=== PATIENT | female | born 1980 | race Caucasian/White ===

== ENCOUNTER 2018-08-19 16:45 | Outpatient (CLI) | payer BC ==
[~2018-08-19] VITALS: Ht 144.8 cm; Wt 96.3 kg
[2018-08-19 16:54] VITALS: Ht 144.8 cm; Wt 96.3 kg
[2018-08-19] MEDS ORDERED: PNV11TAB PO (16:54)
[2018-08-19 16:55] VITALS: BP 111/58; PULSE 77; RESP 18
--- NOTE | 2018-08-19 18:58 | TRIAGE ---
OB Triage Datetime Report Generated by CPN: 08/19/2018 18:57 Datetime: 08/19/2018 18:15 Labor Evaluation Frequency: occas Monitor Mode: External Duration (sec)2399: 60-100 Quality: Mild Pattern: Normal: <= 5 Contractions in 10 Minutes Resting Tone [place]: Relaxed Heart Rate FHR Baseline Rate: 140 Monitor Mode: External US FHR Baseline Changes: No Baseline Change Variability: Moderate 6-25 bpm Accelerations: 15X15 Decelerations: None Category: Category I Datetime: 08/19/2018 17:00 Assessment Type: Triage Maternal Assessment Level of Consciousness: Fully Conscious DTR's/Clonus: DTRs 2+; No Clonus Headache: Denies Blurred Vision: No Respiratory Effort: Unlabored; Regular Rhythm; Equal Expansion Breath Sounds, Left: Clear and Equal Breath Sounds, Right: Clear and Equal Nausea/Vomiting: Denies RUQ Epigastric Pain: Denies Lower Extremities Edema: None Degree: None Upper Extremities Edema: None Degree: None Facial Edema: None Fall Risk Assessment History of Falling: (0) No Secondary Diagnosis: (0) No Ambulatory Aid: (0) Bedrest/Nurse Assist IV Therapy: (0) No Gait: (0) Normal/Bedrest/Immobile Mental Status: (0) Oriented to Own Ability Fall Score: 0 Fall Risk Score Definition: No Risk: No action required Labor Evaluation Frequency: 0 Monitor Mode: External Pattern: Normal: <= 5 Contractions in 10 Minutes Resting Tone [place]: Relaxed Contraction Comments: none noted Heart Rate FHR Baseline Rate: 140 Monitor Mode: External US Variability: Moderate 6-25 bpm Accelerations: 15X15 Decelerations: None Category: Category I Datetime: 08/19/2018 16:59 Time of Arrival: 08/19/2018 16:35 EGA: 36.1 Arrived By: Ambulatory Arrived From: Home Chief Complaint: facial numbness for two days Movement: Present Contractions: Denies/Absent Rupture of Membranes: Denies Vaginal Discharge: Denies Recent Sexual Intercouse: Denies Abdominal Trauma: Not Applicable Time Provider Notified: 08/19/2018 16:36 Provider Notified: dr del valle Initial Plan: krystal tanner and efw
== END 2018-08-19 18:59 | disposition home or self-care (01) ==
LOC: OBT 16:45 → L-D 16:48 → OBT 18:59
PROVIDERS: ATTEND Obstetrics & Gynecology
DX: O26.893 Other specified pregnancy related conditions, third trimester (principal); R29.810 Facial weakness; O09.523 Supervision of elderly multigravida, third trimester; Z3A.36 36 weeks gestation of pregnancy
CPT/HCPCS: 76815; 76818; Z7500; G0463

== ENCOUNTER 2018-09-09 10:40 | Inpatient (IN) | payer BC ==
[~2018-09-09] VITALS: Ht 142.2 cm; Wt 97.1 kg
[~2018-09-09 10:40] MED LIST: PNV11TAB PO
[2018-09-09 10:47] VITALS: BP 134/81; PULSE 72; RESP 16; Ht 142.2 cm; Wt 97.1 kg
[2018-09-09] MEDS ORDERED: CARBOPROST 250 MCG INJ IM PRN ×2 (11:00→18:30)
[2018-09-09] MEDS ORDERED: OXYTOCIN 30 UNITS/LR 500 ML IV PRN ×2 (11:00→18:30)
[2018-09-09] MEDS ORDERED: METHYLERGONOVINE 0.2 MG INJ IM PRN ×2 (11:00→18:30)
[2018-09-09] MEDS ORDERED: CEFAZOLIN 2 GM/50 ML (PMX) 50 ML IVPB SCH (11:00)
[2018-09-09] MEDS ORDERED: MISOPROSTOL 200 MCG TAB PR PRN ×2 (11:00→18:30)
[2018-09-09] MEDS ORDERED: ONDANSETRON 4 MG INJ IV STA (11:19)
[2018-09-09] MEDS ORDERED: METOCLOPRAMIDE 10 MG INJ IV ONE (12:00)
[2018-09-09] MEDS: LACTATED RINGER'S 1,000 ML IV SCH ×2 (12:05→15:05)
--- NOTE | 2018-09-09 12:49 | HP ---
Date/Time of Note Date/Time of Note DATE: 09/09/18 TIME: 12:44 OB - History Hx of Present Free Text/Dictation 38-year-old 4 para 3003 with single intrauterine at 39 weeks and 3 previous delivery admitted for repeat delivery. Permanent surgical sterilization discussed with patient during visit, she declined. She states good movement. She denies nausea, vomiting, shortness of breath, chest pain, headache, visual changes, vaginal bleeding or LOF. Chief Complaint: Scheduled for repeat delivery Last Menstrual Period: Dec 09, 2017 Estimated Due Date: Sep 15, 2018 : 4 Para: 3 Spontaneous : 0 Therapeutic : 0 Care: Good Care Ultrasounds: Normal mid trimester US Obstetrical Complications: None Medical Complications: None Past Family/Social History * Past Medical, Surgical, Family and Obstetric Histories reviewed from chart. Blood Type: O+ Rubella: immune RPR/VDRL: Negative GBS Status: Positive HBsAG: Negative OB Admission Exam Vital Signs Vital Signs Vital Signs Date Temp Pulse Resp B/P (MAP) Pulse Ox O2 O2 Flow FiO2 Time Delivery Rate 09/09/18 98.4 72 16 134/81 10:47 (98) Physical Exam HEENT: WNL Heart: Rhythm Normal Lungs: Clear Abdomen: WNL Extremities: Normal Membranes: Intact Heart Rate: 130's Accelerations: Accelerations Present Decelerations: No Decelerations Varibility: Moderate Contractions on Admission: >10 Minutes Apart Last 72 hours Lab Results CBC & BMP 09/09/18 11:51 OB Assessment/Plan Other plan: 38 years old 4 para 3003 with 3 previous delivery at 39 weeks desires repeat delivery - FHR: No sign of metabolic acidosis- Category I - Continuous EFM, toco - CBC, blood type and screen - Please see the orders - O+/Rubella: Immune - GBS: Positive The risk of delivery including but not limited to bleeding, infection, injury to other organs (bowel, bladder, ureter, vessels, nerves), injury to fetus, blood transfusion, blood transfusion related infection, risk of anesthesia, adhesion, needs for future , removal of uterus or any other indicated surgery, increased risk of infection with obesity, deep vein thromboses, pulmonary emboli was discussed with the patient and her family. She expressed understanding. All of her questions were answered. She signed the informed consent. PHYSICIAN'S VERIFICATION OF INFORMED CONSENT The patient was counseled regarding the procedure, its indications, risks, potential complications and alternatives and any questions were answered. Consent was obtained. PLANNED PROCEDURE/TREATMENT: delivery with possible using vacuum/forceps and any other indicated surgery PHYSICIAN'S VERIFICATION OF INFORMED CONSENT FOR BLOOD TRANSFUSION: There is a reasonable possibility that blood transfusion will be necessary as a result of the patient's procedure. I have discussed the following with the sharmila briones/patient's legal passenger relations representative: An explanation of the benefits and risks of the transfusion of blood or blood products and the possible alternatives. All questions have been answered to the patient's satisfaction. INFORMED CONSENT:The patient has been informed of: The nature of the proposed care, treatment, services, medications, interventions or procedures. Potential benefits, risks or side effects, including potential problems related to recuperation. The likelihood of achieving care treatment and service goals. Reasonable alternatives to the proposed care, treatment and service. The relevant risks, benefits and side effects related to alternatives, including the possible results of not receiving care, treatment and services. When indicated, any limitations on the confidentiality of information learned from or about the patient. If appropriate, the risks, benefits and alternatives of the drugs to be used for sedation/analgesia including moderate sedation. If appropriate, patient has been provided information on the risks, benefits and alternatives to the transfusion of blood and/or blood products. If appropriate, patient has been provided information regarding the [place] Blood Act. JUVENTINO PIERCE Sep 09, 2018 12:49
--- NOTE | 2018-09-09 13:14 | PREAC ---
Date/Time of Note Date/Time of Note DATE: 09/09/18 TIME: 13:13 Anesthesia Eval and Record Evaluation Time Pre-Procedure Interview DATE: 09/09/18 TIME: 13:13 Age 38 Sex female NPO: 8 hrs Preoperative diagnosis Planned procedure repeat c/s Past Medical History Past Medical History: Includes GI: Morbid obesity Surgery & Anesthesia Issues No known issue Meds Anticoagulation: No Beta Tremayne within 24 hr: No Reason Beta Tremayne not given: Pt. not on B-Tremayne Reported Medications [id number] ( 19) 1 Each Tablet, 1 TAB PO DAILY, TAB 08/19/18 Current Medications Lactated Ringer's 1,000 ml @ 125 mls/hr Q8H IV Last administered on 09/09/18at 12:05; Admin Dose 125 MLS/HR; Start 09/09/18 at 12:00 Cefazolin Sodium/ Dextrose 50 ml @ 100 mls/hr ONCE IVPB ; Start 09/09/18 at 11: 00 Oxytocin/Lactated Ringer's 500 ml @ 0 mls/hr ONCE PRN IV .VAGINAL BLEEDING; Start 09/09/18 at 11:00 Methylergonovine Maleate (Methergine) 0.2 mg ONCE PRN IM .VAGINAL BLEEDING; Start 09/09/18 at 11:00 Carboprost Tromethamine (Hemabate) 250 mcg ONCE PRN IM .VAGINAL BLEEDING; Start 09/09/18 at 11:00 Misoprostol (Cytotec) 1,000 mcg ONCE PRN MN .VAGINAL BLEEDING; Start 09/09/18 at 11:00 Meds reviewed: Yes Allergies Coded Allergies: No Known Drug Allergy (Verified Allergy, Unknown, 03/10/18) Allergies Reviewed: Yes Labs/Studies Labs Reviewed: Reviewed by anesthesiologist Result Diagram: 09/09/18 1151 Laboratory Tests 09/09/18 11:51 Blood Bank Test 09/09/18 11:51 Antibody Screen NEGATIVE Blood Type O POSITIVE Rh Immune Globulin Candidate NO test: Positive Pre-procedure Exam Last vitals Vital Signs Date Temp Pulse Resp B/P (MAP) Pulse Ox O2 O2 Flow FiO2 Time Delivery Rate 09/09/18 98.4 72 16 134/81 10:47 (98) Airway: Adequate mouth opening, Adequate thyromental dist Mallampati: Mallampati II Teeth: Normal Lung: Normal Heart: Normal ASA Physical Status ASA physical status: 3 Emergency: None Planned Anesthetic Neuraxial: Spinal Planned Pain Management Sub-arachniod narcotics Pre-operative Attestations Prior to commencing anesthesia and surgery, the patient was re-evaluated, there was verification of: *The patient's identity *The results of appropriate recent lab work and preoperative vital signs *The above evaluation not changing prior to induction *Anesthetic plan, risk benefits, alternative and complications discussed with patient/family; questions answered; patient/family understands, accepts and wishes to proceed. ARMANDO PFEIFFER Sep 09, 2018 13:14
[2018-09-09] MEDS ORDERED: morphine SULFATE/PF (10 MG/10 ML) INJ ONE (13:23)
[2018-09-09] MEDS ORDERED: PHENYLephrine 10 MG INJ ONE (13:23)
[2018-09-09] MEDS ORDERED: ONDANSETRON 4 MG INJ IV PRN ×2 (13:30)
[2018-09-09] MEDS ORDERED: HYDROmorphONE 1 MG/5 ML IV SYRINGE IV PRN ×3 (13:30)
[2018-09-09] MEDS ORDERED: KETOROLAC 30 MG INJ IV PRN (13:30)
[2018-09-09] MEDS ORDERED: HYDROmorphONE 0.5 MG/0.5 ML SYG IV PRN ×2 (13:30)
[2018-09-09] MEDS ORDERED: METOCLOPRAMIDE 10 MG INJ IV PRN (13:30)
[2018-09-09] MEDS ORDERED: NALOXONE (0.4 MG/ML) INJ IV PRN (13:30)
[2018-09-09] MEDS ORDERED: ALBUTEROL 0.083% (NEB) 2.5 MG/3 ML AMP HHN PRN (13:30)
[2018-09-09] MEDS ORDERED: DIPHENHYDRAMINE 50 MG INJ IV PRN ×2 (13:30)
[2018-09-09] MEDS ORDERED: FENTAnyl 50 MCG/ML VIAL IV PRN ×3 (13:30)
--- NOTE | 2018-09-09 16:21 | OPR ---
Operative Report Planned Procedure Procedure date Sep 09, 2018 Procedure(s) 1. Repeat low transverse delivery 2. Lysis of adhesion Performed by see signature line Fruit Harvester: EVELIA CHARLES MD Anesthesiologist: ARMANDO PFEIFFER Pre-procedure diagnosis 38 years old 4 para 3003 with 3 previous delivery at 39 weeks desires repeat delivery [id number] Anesthesia Type: [id number] spinal Post-Procedure Post-procedure diagnosis 38 years old 4 para 3003 with 3 previous delivery at 39 weeks desires repeat delivery Findings 1. Normal uterus except there was multiple omental adhesion at right and anterior of uterus and thick dense adhesion between the left lateral of uterus and peritoneum. Adhesion clamped, cut and suture-ligated. Normal fallopian tubes and ovaries 2. Viable male in cephalic presentation. 9 at one minute and 9 in 5 minutes. Weight: 8 pound 2 ounces. Height 19 inches. Time of delivery: 14:00 3. Placenta with three vessel cord 4. Amniotic fluid - Clear Estimated Blood Loss: 600 - 700 mls Specimen(s) none Grafts/Implant(s) none Complication(s) none Pt Condition post procedure: stable Disposition: PACU Procedure Description INDICATION AND HISTORY: A 38 years old 4 para 3003 with 3 previous delivery at 39 weeks desires repeat delivery. The risk of delivery including but not limited to bleeding, infection, injury to other organs (bowel, bladder, ureter, vessels, nerves), injury to fetus, blood transfusion, blood transfusion related infection, risk of anesthesia, adhesion, needs for future , removal of uterus or any other indicated surgery was discussed with the patient and her family. She expressed understanding. All of her questions were answered. She signed the informed consent. DESCRIPTION OF OPERATION: The patient was taken to the operating room, where she was identified and the procedure was verified. The patient received two gram of Ancef 30 minutes prior to surgery. Spinal anesthesia was placed. The patient placed in the dorsal supine position with a left tilt. The heart rate was 134 bpm. The patient was then prepped and draped in the normal sterile fashion. A Pfannenstiel skin incision was made and carried down to the fascia with knife. The fascia was incised in the midline and the fascial incision was carried laterally with knife. The superior portion of the fascial incision was then grasped with Fabiola clamps and tented up and dissected off the underlying rectus muscle with sharp dissection. The lower portion of the fascial incision was then made in a similar fashion. The rectus muscle was and the peritoneum was entered. The peritoneal incision was then stretched and a bladder blade was inserted. There was multiple omental adhesion at right and anterior of uterus and thick dense adhesion between the left lateral of uterus and peritoneum. Adhesions clamped, cut and suture-ligated.Then, an incision was made in the lower uterine segment in a transverse fashion with a knife and extended bluntly. The was delivered atraumatically in cephalic presentation with the above findings. Vacuum used to assist delivery of head. The umbilical cord was clamped and cut. The neonatology resuscitation team was present and the baby was handed to them. A cord blood sample was obtained for further evaluation. The placenta and membrane, which appeared normal were Removed. The uterus was exteriorized and cleared of all clot and debris. The uterus was then closed in a two layer fashion with 0-Monocryl. At the time of closure, hemostasis was noted. The gutters were irrigated. The peritoneum was reapproximated with 3-0 *Vicryl. The muscle was reapproximated with 3-0 Vicryl. The fascia was approximated with 0-Vicryl in a running fashion. The subcutaneous tissue was re approximated with 3-0 vicryl in 2 layer. The skin was closed with 4-0 Monocryl. All instruments, sponges and needle counts were correct x3. The patient tolerated the procedure well. She transferred to the recovery room in stable condition. JUVENTINO IPERCE Sep 09, 2018 16:21
[2018-09-09] MEDS: KETOROLAC 30 MG INJ IV PRN (16:51)
[2018-09-09 17:50] VITALS: BP 105/51; PULSE 74; RESP 17
[2018-09-09] MEDS ORDERED: OXYTOCIN 30 UNITS/LR 500 ML IV SCH (18:05)
[2018-09-09] MEDS ORDERED: MAGNESIUM HYDROXIDE 30ML CUP PO PRN (18:30)
[2018-09-09] MEDS ORDERED: METHYLERGONOVINE 0.2 MG TAB PO PRN (18:30)
[2018-09-09] MEDS ORDERED: LANOLIN HPA 1 PKT TOP PRN (18:30)
[2018-09-09] MEDS: DEXTROSE 5%-LR 1,000 ML IV SCH (19:30)
[2018-09-09 19:35] VITALS: BP 106/62; PULSE 80; RESP 20
[2018-09-09] MEDS: SENNA/DOCUSATE NA (8.6MG/50MG) TAB PO SCH (21:00)
[2018-09-09] MEDS: IBUPROFEN 800 MG TAB PO SCH (22:00)
[2018-09-10] VITALS: BP 103/51; PULSE 86; RESP 20
[2018-09-10] MEDS: DEXTROSE 5%-LR 1,000 ML IV SCH ×2 (02:05→10:05)
[2018-09-10] MEDS: LACTATED RINGER'S 1,000 ML IV SCH ×2 (03:29→12:33)
[2018-09-10 04:06] VITALS: BP 100/53; PULSE 92; RESP 20
[2018-09-10] MEDS: IBUPROFEN 800 MG TAB PO SCH ×3 (06:00→22:18)
[2018-09-10] MEDS: KETOROLAC 30 MG INJ IV PRN (06:11)
[2018-09-10 07:40] VITALS: BP 110/59; PULSE 84; RESP 20
[2018-09-10] MEDS: SENNA/DOCUSATE NA (8.6MG/50MG) TAB PO SCH ×2 (09:00→22:17)
[2018-09-10] MEDS ORDERED: DIPHTH/TET/ACEL PERTUSS (ADULT) 0.5 ML VIAL IM* ONE (11:00)
[2018-09-10] MEDS ORDERED: HYDROCODONE/APAP (5/325) TAB NGT PRN (11:00)
[2018-09-10 11:47] VITALS: BP 106/72; PULSE 85; RESP 18
--- NOTE | 2018-09-10 13:24 | PAC ---
Date/Time of Note Date/Time of Note DATE: 09/10/18 TIME: 13:24 Post-Anesthesia Notes Post-Anesthesia Note Last documented vital signs Vital Signs Date Temp Pulse Resp B/P (MAP) Pulse Ox O2 O2 Flow FiO2 Time Delivery Rate 09/10/18 98.8 85 18 106/72 98 Room Air 11:47 (83) Activity: WNL Respiratory function: WNL Cardiovascular function: WNL Mental status: Baseline Pain reasonably controlled: Yes Hydration appropriate: Yes Nausea/Vomiting absent: Yes ARMANDO PFEIFFER Sep 10, 2018 13:24
--- NOTE | 2018-09-10 13:51 | PN ---
Date/Time of Note Date/Time of Note DATE: 09/10/18 TIME: 13:45 OB Subjective Subjective Subjective Breast feeding, Passed flatus. Tolerated diet. Denies any nausea vomiting. Vaginal bleeding decreased. Reports pain in both calves. OB Objective Objective Objective General appearance: Alert and oriented x4 does not appear to be in any acute distress Obese abdomen: soft, appropriate tenderness in the incision. Incision: Clean dry and intact. No evidence of erythema around the wound or drainage CV: RRR Lungs: Clear to auscultation bilaterally Extremities: 1+ bilateral edema. Appears to be more in the left side. Questionable positive Homans sign. No cord palpable. Calf tenderness noted in exam SCDs both on and appropriate position Laboratory Tests Test 09/10/18 06:28 09/10/18 07:45 Lab Scanned Report REFERENCE LAB White Blood Count 8.3 Red Blood Count 3.23 #L Hemoglobin 9.1 #L Hematocrit 27.2 #L Mean Corpuscular Volume 84.2 Mean Corpuscular Hemoglobin 28.2 L Mean Corpuscular Hemoglobin Concent 33.5 Red Cell Distribution Width 14.6 H Platelet Count 275 Mean Platelet Volume 10.2 Immature Granulocytes % 0.400 Neutrophils % 76.9 Lymphocytes % 16.1 Monocytes % 5.9 Eosinophils % 0.6 Basophils % 0.1 Nucleated Red Blood Cells % 0.0 Immature Granulocytes # 0.030 Neutrophils # 6.4 Lymphocytes # 1.3 Monocytes # 0.5 Eosinophils # 0.1 Basophils # 0.0 Nucleated Red Blood Cells # 0.0 VS - Last 72 Hours, by Label Date Temp Pulse Resp B/P (MAP) Pulse Ox O2 O2 Flow FiO2 Time Delivery Rate 09/10/18 98.8 85 18 106/72 98 Room Air 11:47 (83) 09/10/18 98.9 84 20 110/59 98 Room Air 07:40 (76) 09/10/18 98.6 92 20 100/53 96 Room Air 04:06 (69) 09/10/18 98.0 86 20 103/51 100 Room Air 00:00 (68) 09/09/18 98.7 80 20 106/62 100 Room Air 19:35 (77) 09/09/18 98.1 74 17 105/51 98 Room Air 17:50 (69) 09/09/18 98.4 72 16 134/81 10:47 (98) OB Assessment/Plan Other Assessment: Status post section Postoperative day #1 Anemia, postop, asymptomatic Calf tenderness, obesity, postop Cannot rule out DVT. Patient had risk factor. Doppler of lower extremity bilateral requested Routine postop care. Follow-up with Doppler ultrasound Iron when tolerating p.o. well in addition to vitamin ALISIA PEARCE MD Sep 10, 2018 13:51
[2018-09-10] MEDS: HYDROCODONE/APAP (5/325) TAB GTB SCH ×2 (14:31→22:18)
[2018-09-10 15:10] VITALS: BP 118/58; PULSE 99; RESP 18
[2018-09-10 19:46] VITALS: BP 112/50; PULSE 84; RESP 19
[2018-09-11 03:30] VITALS: BP 101/47; PULSE 78; RESP 19
[2018-09-11] MEDS: HYDROCODONE/APAP (5/325) TAB GTB SCH ×3 (05:56→21:36)
[2018-09-11] MEDS: IBUPROFEN 800 MG TAB PO SCH ×3 (05:56→21:35)
[2018-09-11 07:55] VITALS: BP 104/47; PULSE 79; RESP 20
[2018-09-11] MEDS: SENNA/DOCUSATE NA (8.6MG/50MG) TAB PO SCH ×2 (08:48→21:35)
--- NOTE | 2018-09-11 12:11 | QN ---
Documentation Comment passing flatus no B.M yet no complaints vss afebrile abdomen soft wound dry lochia min calf neg for tenderness PO 8.3, 9.1/27.2 , 275 A stable S/P Rc/s #2 P d/s home in am JOSETTE LUTZ MD Sep 11, 2018 12:11
[2018-09-11 16:00] VITALS: BP 106/69; PULSE 89; RESP 18
[2018-09-11] MEDS ORDERED: DIPHTH/TET/ACEL PERTUSS (ADULT) 0.5 ML VIAL IM* ONE (17:30)
[2018-09-11 20:15] VITALS: BP 99/52; PULSE 76; RESP 17
[2018-09-12 04:00] VITALS: BP 113/72; PULSE 83; RESP 18
[2018-09-12] MEDS: IBUPROFEN 800 MG TAB PO SCH ×3 (06:02→21:25)
[2018-09-12] MEDS: HYDROCODONE/APAP (5/325) TAB GTB SCH ×3 (06:03→21:26)
[2018-09-12 08:30] VITALS: BP 101/58; PULSE 70; RESP 18
[2018-09-12] MEDS ORDERED: MEASLES,MUMPS,RUBELLA VACCINE INJ SC* ONE (09:00)
[2018-09-12] MEDS ORDERED: DIPHTH/TET/ACEL PERTUSS (ADULT) 0.5 ML VIAL IM* ONE ×2 (09:00→12:30)
[2018-09-12] MEDS: SENNA/DOCUSATE NA (8.6MG/50MG) TAB PO SCH ×2 (10:29→21:25)
[2018-09-12 15:57] VITALS: BP 127/66; PULSE 78; RESP 18
[2018-09-12 20:10] VITALS: BP 105/55; PULSE 75; RESP 18
[2018-09-13 04:10] VITALS: BP 90/51; PULSE 67; RESP 17
[2018-09-13] MEDS: IBUPROFEN 800 MG TAB PO SCH ×2 (05:48→13:30)
[2018-09-13] MEDS: HYDROCODONE/APAP (5/325) TAB GTB SCH ×2 (06:13→13:30)
[2018-09-13] MEDS: SENNA/DOCUSATE NA (8.6MG/50MG) TAB PO SCH (09:14)
[2018-09-13 09:25] VITALS: BP 113/62; PULSE 68; RESP 18
--- NOTE | 2018-09-13 10:52 | PN ---
Date/Time of Note Date/Time of Note DATE: 09/13/18 TIME: 10:49 OB Subjective Subjective Subjective Late entry note. Patient seen on 09/12/2018 POD#3 Patient is doing well. She denies nausea, vomiting, shortness of breath, chest pain, headache. She has been ambulating without difficulty, tolerating regular diet. Pain is well controlled on current medications OB Objective Objective Objective Vital Signs Date Temp Pulse Resp B/P (MAP) Pulse Ox O2 O2 Flow FiO2 Time Delivery Rate 09/13/18 98.9 68 18 113/62 Room Air 09:25 (79) 09/10/18 100 15:10 General: AAO X 3, comfortable, NAD, appropriate mood and affect. Heart: RRR +S1, +S2, no murmurs. Incision: Clear, dry, intact. No erythema, drainage or induration. Flank: No CVA tenderness (B/L) LE: Mild edema. No clubbing, cyanosis, thigh or calf tenderness (B/L). Homans 'sign is negative OB Assessment/Plan Other plan: 38-year-old 4 para 4004 s/p repeat delivery at 39 weeks. POD#3 - AF, VSS - Contraception methods with R/B/A/FR discussed - Continue care - She received Tdap vaccine - Discharge home tomorrow - Rx and instruction given - Follow up in one and 6 weeks JUVENTINO PIERCE Sep 13, 2018 10:52
--- NOTE | 2018-09-13 10:55 | DS ---
Date/Time of Note Date/Time of Note DATE: 09/13/18 TIME: 10:52 Obstetrical Discharge Record Final Diagnosis Final Diagnosis: Term delivered Other Final Diagnosis 38-year-old 4 para 4004 s/p repeat delivery at 39 weeks. POD#3. course was unremarkable. She is ambulating and tolerating regular diet. She is voiding without difficulty. She had bowel movement. Pain is controlled on current medication. Baby transferred to NICU for close observation yesterday - AF, VSS - Contraception methods with R/B/A/FR discussed - Continue care - She received Tdap vaccine - Discharge home - Rx and instruction given - Follow up in one and 6 weeks Section Section: Repeat Condition on Discharge Physical Assessment Last Vitals: Vital Signs Date Temp Pulse Resp B/P (MAP) Pulse Ox O2 O2 Flow FiO2 Time Delivery Rate 09/13/18 98.9 68 18 113/62 Room Air 09:25 (79) 09/10/18 100 15:10 Voiding: Yes Bowel Movement: Yes Breast: Soft, non-tender Fundus: Firm Calf Tenderness: No Patient Condition: Stable JUVENTINO PIERCE Sep 13, 2018 10:55
--- NOTE | 2018-09-13 20:19 | QN ---
Documentation Comment This is a late entry note for 09/12/2018 Postop day #3 S/P R C/S Patient stable and afebrile Tolerating regular diet and ambulating and voiding without any difficulties, passing flatus Vital signs stable VS - Last 72 Hours, by Label Date Temp Pulse Resp B/P (MAP) Pulse Ox O2 O2 Flow FiO2 Time Delivery Rate 09/13/18 98.9 68 18 113/62 Room Air 09:25 (79) 09/13/18 97.6 67 17 90/51 (64) Room Air 04:10 09/12/18 98.2 75 18 105/55 Room Air 20:10 (72) 09/12/18 98.3 78 18 127/66 Room Air 15:57 (86) 09/12/18 98.3 70 18 101/58 Room Air 08:30 (72) 09/12/18 98.2 83 18 113/72 Room Air 04:00 (86) 09/11/18 98.6 76 17 99/52 (68) Room Air 20:15 09/11/18 98.2 89 18 106/69 Room Air 16:00 (81) 09/11/18 98.2 79 20 104/47 Room Air 07:55 (66) 09/11/18 97.9 78 19 101/47 Room Air 03:30 (65) wbc 8.3 Hb/hct 9.1/27.2 Abdomen soft, fundus firm Incision C/D/I Extremities nontender Assessment and plan; Patient stable and doing well Encouraged to ambulate Continue with routine postop care SHANA DINERO MD Sep 13, 2018 20:18
--- NOTE | 2018-09-14 14:35 | DELSUM ---
Delivery Summary A-C Datetime Report Generated by CPN: 09/14/2018 14:35 DELIVERY PERSONNEL Steel Rule Inspector: Wilcox, [place] MATERNAL INFORMATION Delivery Anesthesia: Spinal Medications in Delivery: see anesthesia records Delivery QBL (ml): 600 Placenta Cultured: No Maternal Complications: Other Other Maternal Complications: obesity LABOR SUMMARY EDC: 09/15/2018 00:00 No. Babies in Womb: 1 Attempted: No Labor Anesthesia: Intrathecal LABOR INFORMATION Reason for Induction: Not Applicable Oxytocin: N/A Group B Beta Strep: Positive Antibiotics # of Doses: 1 Antibiotics Time of Last Dose: 09/09/2018 13:41 Steroids Given: None Reason Steroids Not Administered: Not Applicable MEMBRANES Membranes Rupture Method: Artificial Rupture of Membranes: 09/09/2018 13:59 Length of Rupture (hr): 0.02 Amniotic Fluid Color: Clear Amniotic Fluid Amount: Large Amniotic Fluid Odor: None STAGES OF LABOR Stage 3 hr: 0 Stage 3 min: 1 CSECTION DELIVERY Primary Indication: Repeat Elective CSection Urgency: Elective CSection Incidence: Repeat Labor: No Labor Elective: Elective CSection Incision: Lower Uterine Transverse BABY A INFORMATION Infant Delivery Date/Time: 09/09/2018 14:00 Method of Delivery: Born in Route : No : N/A Forceps: N/A Vacuum Extraction: Successful Shoulder Dystocia : No ASSISTED DELIVERY BABY A Catheter Prior to Procedure: Yes Position Vacuum/Forcep Apply: Left Occipital Anterior Vacuum Number of Pulls: 1 Vacuum Number of PopOffs: 0 Vacuum Maximum Pressure Obtained: 25 Vacuum Adding Machine Operator: [place] Total Time Vacuum Applied: 30 sec SHOULDER DYSTOCIA BABY A Delivery Date/Time: 09/09/2018 14:00 PRESENTATION/POSITION BABY A Presentation: Cephalic Cephalic Presentation: Vertex Vertex Position: Left Occipital Anterior Breech Presentation: N/A PLACENTA INFORMATION BABY A Placenta Delivery Time : 09/09/2018 14:01 Placenta Method of Delivery: Manual Removal Placenta Status: Delivered SCORES BABY A Heart Rate 1 min: >100 bpm Resp Effort 1 min: Good Cry Reflex Irritability 1 min: Cough/Sneeze/Pulls Away Muscle Tone 1 min: Active Motion Color 1 min: Body [place], Extremit Blue Resuscitation Effort 1 min: Tactile Stimulation SCORE 1 MIN: 9 Heart Rate 5 min: >100 bpm Resp Effort 5 min: Good Cry Reflex Irritability 5 min: Cough/Sneeze/Pulls Away Muscle Tone 5 min: Active Motion Color 5 min: Body [place], Extremit Blue SCORE 5 MIN: 9 INFORMATION BABY A Gestational Age at Delivery: 39.1 Gestational Status: Full Term- 39- 40.6 Weeks Outcome : Liveborn Condition : Stable Infant Sex: Male IDENTIFICATION/MEDS BABY A ID Band Number: [id number] ID Band Location: Right Leg; Left Arm Sensor Applied: Yes Sensor Number: [id number] Sensor Location : Cord Clamp WEIGHT/LENGTH BABY A Birthweight (gm): 3695 Weight (lb): 8 Infant Weight (oz): 2 Infant Length (in): 19.00 Infant Length (cm): 48.26 CORD INFORMATION BABY A No. Cord Vessels: 3 Nuchal Cord : Around Neck x1, Loose Cord Blood Taken: Yes Infant Suction: Mouth; Nose
== END 2018-09-13 14:35 | disposition home or self-care (01) | DRG 788 ==
LOC: L-D 10:40 → PP1 17:54
PROVIDERS: ADMIT Obstetrics & Gynecology; ATTEND Obstetrics & Gynecology
PROC: 10D00Z1 Extraction of Products of Conception, Low, Open Approach (ICD-10-PCS; principal; 2018-09-09 12:30)
DX: O34.211 Maternal care for low transverse scar from previous cesarean delivery (principal); O99.214 Obesity complicating childbirth; E66.01 Morbid (severe) obesity due to excess calories; O90.81 Anemia of the puerperium; D64.9 Anemia, unspecified; M79.662 Pain in left lower leg; M79.661 Pain in right lower leg; Z37.0 Single live birth; Z3A.39 39 weeks gestation of pregnancy
CPT/HCPCS: 85025; 85610; 85730; 86592; 86850; 86900; 86901; 87340; 90715; 93970; 99464; J0690; J1885; J2274; J2405; J2590; J2765; J7120; J7121

== ENCOUNTER 2018-10-07 20:12 | Emergency (ER) | payer BC ==
[~2018-10-07] VITALS: Ht 152.4 cm; Wt 88.1 kg
[2018-10-07 20:16] VITALS: Ht 152.4 cm; Wt 88.1 kg
[2018-10-07] MEDS ORDERED: ONDANSETRON 4 MG INJ IV STA (21:43)
[2018-10-07] MEDS ORDERED: SOD CHLORIDE 0.9% 500 ML IV STA (21:43)
[2018-10-07] MEDS ORDERED: morphine 2 MG INJ IV STA (21:43)
--- NOTE | 2018-10-07 21:59 | ERD ---
ER Documentation Chief Complaint Chief Complaint LLQ pain x 1 week, 1 month ago HPI This is a 38-year-old female with a nonsignificant past medical history presents ED with complaints of left lower quadrant abdominal pain that is been present for the past week. Patient describes the left lower quadrant abdominal pain as burning and states that it is constant. Admits to some hematuria. Denies fever, chills, nausea, vomiting, diarrhea, constipation, hematemesis, melena, hematochezia, hemoptysis, cough, shortness of breath, trouble breathing, dysuria, vaginal pain, vaginal discharge. Patient recently gave via section 1 month ago and states that her section incision line is healing well she is having no pain in this area. Denies chance of being . No known drug allergies. ROS All systems reviewed and are negative except as per history of present illness. Medications Home Meds Reported Medications [id number] ( 19) 1 Each Tablet, 1 TAB PO DAILY, TAB 08/19/18 Allergies Allergies: Coded Allergies: No Known Drug Allergy (Verified Allergy, Unknown, 03/10/18) PMhx/Soc Medical and Surgical Hx: pt denies Medical Hx, pt denies Surgical Hx Hx Alcohol Use: No Hx Substance Use: No Hx Tobacco Use: No Smoking Status: Never smoker FmHx Family History: No diabetes Physical Exam Vitals Vital Signs Date Temp Pulse Resp B/P (MAP) Pulse Ox O2 O2 Flow FiO2 Time Delivery Rate 10/07/18 98.9 92 20 110/56 98 20:16 (74) Physical Exam Physical Exam Vitals signs: Reviewed by me. General: Well developed, well nourished, in no acute distress. Patient is awake and alert. Head: Normocephalic, atraumatic. Eyes: Normal conjunctiva, Pupils PERRLA, EOM intact grossly ENT: Pharynx is clear, Moist mucous membranes, external ears, nose and mouth normal Neck: Supple, no masses, lymphadenopathy or JVD Respiratory: Clear to auscultation bilaterally with no wheezing, rhonchi, rales, no distress Cardiovascular: RRR, no murmurs, rubs, or gallops Abdominal: Obese, no peritoneal signs, no rigidity, no surgical abdomen, bowel sounds present all 4 quadrants, mild tenderness palpation in left lower quadrants, nontender to palpation in all other quadrants, McBurney's point nontender, no rebound tenderness, Juan sign negative Back: No midline tenderness. No flank tenderness Neurologic: Alert and oriented, moving all extremities, normal speech, no focal weakness, no cerebellar signs. Normal mentation Skin: warm and dry, No rash Psych: Normal mood Result Diagram: 10/07/18220210/07/182202 Results 24 hrs Laboratory Tests Test 10/07/18 22:03 10/07/18 22:05 White Blood Count 8.9 10^3/ul Red Blood Count 4.05 10^6/ul Hemoglobin 11.0 g/dl Hematocrit 34.4 % Mean Corpuscular Volume 84.9 fl Mean Corpuscular Hemoglobin 27.2 pg Mean Corpuscular Hemoglobin Concent 32.0 g/dl Red Cell Distribution Width 14.5 % Platelet Count 398 10^3/UL Mean Platelet Volume 9.3 fl Immature Granulocytes % 0.300 % Neutrophils % 55.0 % Lymphocytes % 35.4 % Monocytes % 5.8 % Eosinophils % 3.4 % Basophils % 0.1 % Nucleated Red Blood Cells % 0.0 /100WBC Immature Granulocytes # 0.030 10^3/ul Neutrophils # 4.9 10^3/ul Lymphocytes # 3.2 10^3/ul Monocytes # 0.5 10^3/ul Eosinophils # 0.3 10^3/ul Basophils # 0.0 10^3/ul Nucleated Red Blood Cells # 0.0 10^3/ul Urine Color STRAW Urine Clarity CLEAR Urine pH 6.0 Urine Specific [place] 1.014 Urine Ketones NEGATIVE mg/dL Urine Nitrite NEGATIVE mg/dL Urine Bilirubin NEGATIVE mg/dL Urine Urobilinogen NEGATIVE mg/dL Urine Leukocyte Esterase NEGATIVE Avelino/ul Urine Microscopic RBC 0 /HPF Urine Microscopic WBC 1 /HPF Urine Hemoglobin 2+ mg/dL Urine Glucose NEGATIVE mg/dL Urine Total Protein NEGATIVE mg/dl Sodium Level 141 mmol/L Potassium Level 4.1 mmol/L Chloride Level 105 mmol/L Carbon Dioxide Level 27 mmol/L Anion Gap 9 Blood Urea Nitrogen 14 mg/dl Creatinine 0.84 mg/dl Est Glomerular Filtrat Rate mL/min > 60 mL/min Glucose Level 85 mg/dl Calcium Level 9.2 mg/dl Total Bilirubin 0.2 mg/dl Direct Bilirubin 0.00 mg/dl Indirect Bilirubin 0.2 mg/dl Aspartate Amino Transf (AST/SGOT) 39 IU/L Alanine Aminotransferase (ALT/SGPT) 35 IU/L Alkaline Phosphatase 113 IU/L Total Protein 7.9 g/dl Albumin 3.9 g/dl Globulin 4.00 g/dl Albumin/Globulin Ratio 0.97 Lipase 118 U/L POC Beta HCG, Qualitative NEGATIVE Current Medications Medications Dose Sig/Corky Start Time Status Last (Trade) Ordered Route PRN Stop Time Admin Dose Reason Admin Sodium 500 ml @ Q1H STAT 10/07/18 DC 10/07/18 Chloride 500 mls/hr IV 21:43 22:41 10/07/18 22:42 Morphine 4 mg ONCE STAT 10/07/18 DC 10/07/18 Sulfate IV 21:43 22:47 (morphine) 10/07/18 21:49 Ondansetron 4 mg ONCE STAT 10/07/18 DC 10/07/18 HCl (Zofran IV 21:43 22:41 Inj) 10/07/18 21:49 Procedures/MDM EKG, MONITORS, & DIAGNOSTIC IMAGING: [place] [id number] Radiology Main Line: [phone] DIAGNOSTIC IMAGING REPORT Patient: ARELY TRAYLOR : 1980 Age: 38 Sex: F MR #: [id number] DOS: 10/07/18 214 Ordering MD: JERRI GASTON PA-C Location: E Room/Bed: PROCEDURE: CT Abdomen and pelvis without contrast. CLINICAL INDICATION: Abdominal pain. TECHNIQUE: CT scan of the abdomen and pelvis was performed on a multi-detect or high-resolution CT scanner. Contiguous axial images were obtained from the lung bases to the ischial tuberosities without intravenous contrast. Coronal and sagittal reformatted images were also obtained. Images were reviewed on the PACS workstation. DICOM images are available. One or more of the following dose reduction techniques were used: - Automated exposure control. - Adjustment of the mA and/or kV according to patient size. - Use of iterative reconstruction technique. Exam CTD/vol = 21.97 mGy. Total exam DLP = 1271.48 mGy-cm. COMPARISON: None. FINDINGS: Evaluation of the lung bases demonstrates small calcified granulomas within the right lower lobe. Abdomen: The liver is normal in size. There is no focal mass or dilatation of the biliary tree. The gallbladder is not distended. The spleen, pancreas and bilateral adrenal glands are within normal limits. Bilateral kidneys are normal in size with no contour deforming mass identified. There is a 3 mm calculus within the upper pole of the left kidney. There is no radiopaque ureteral calculus identified. There is no hydronephrosis or hydroureter. There is no retroperitoneal adenopathy. The abdominal aorta is of normal caliber. Evaluation of the bowel is limited by lack of contrast. There is no bowel obstruction or free air. A normal appendix is identified. There is no diverticulosis or diverticulitis. There is no ascites. Pelvis: The bladder is unremarkable. There is a enlarged, uterus. There is no significant pelvic adenopathy or free fluid. Evaluation of the osseous structures demonstrates no suspicious lytic or blastic lesion. IMPRESSION: No acute abnormality identified within the abdomen and pelvis. Nonobstructing left renal calculus. Enlarged, uterus. .Barrington Julian MD, Date Time Electronically viewed and signed by .Barrington Julian MD, MD on 10/07/2018 23:41 .T/ CC: JERRI GASTON PA-C [phone] [place] [address] Radiology Main Line: [phone] DIAGNOSTIC IMAGING REPORT Patient: ARELY TRAYLOR : 1980 Age: 38 Sex: F MR #: [id number] DOS: 10/07/18 2143 Ordering MD: JERRI GASTON PA-C Location: [facility] Room/Bed: PROCEDURE: Pelvic ultrasound. CLINICAL INDICATION: Pelvic pain. TECHNIQUE: Multiple sonographic images of the pelvis were obtained utilizing a transabdominal and endovaginal technique. The images were reviewed on a PACS workstation. COMPARISON: None. FINDINGS: The uterus is visualized and measures 10.8 x 4.8 x 7.2 cm. No abnormal uterine mass is identified. The endometrial echo complex is heterogeneous and not well visualized. There is a heterogeneous structure within the cervical canal measuring 1.2 x 0.8 x 0.9 cm. There is no evidence for free fluid. The right ovary has a normal echotexture and measures 3.6 x 2.0 x 1.8 cm. The left ovary has a normal echotexture and me asures 3.3 x 2.1 x 1.7 cm. There is normal flow to both ovaries. No adnexal masses are identified. IMPRESSION: Heterogeneous structure within the cervical canal could represent blood and blood clots. Clinically correlate. .Barrington Julian MD, Date Time Electronically viewed and signed by .Barrington Julian MD, MD on 10/07/2018 23:44 .T/ CC: JERRI GASTON PA-C [phone] LAB INTERPRETATION: CBC shows no evidence of hemorrhage or infection, mildly decreased hemoglobin 11.0, hematocrit 34.4 Chemistry shows no evidence of significant electrolyte abnormalities or renal insufficiency Liver function test shows no evidence of acute biliary or hepatic dysfunction Lipase shows no evidence of acute pancreatitis Urinalysis shows 2+ hemoglobin but otherwise unremarkable ER COURSE: The patient was given morphine and Zofran for pain The medication was well tolerated and the patient reports improvement in symptoms. The patient was stable throughout ED course. I kept the patient and/or family informed of laboratory and diagnostic imaging results throughout the emergency room course. The patient was promptly evaluated and a treatment plan was devised based on H&P and other data. This plan was discussed with the patient who agreed and had no further questions or concerns prior to discharge. MEDICAL DECISION MAKING: This is a 38-year-old female with a nonsignificant past medical history presents ED with complaints of left lower quadrant abdominal pain that is been present for the past week. Non- woman presenting with abdominal pain. test is negative. Considered causes of female-specific abdominal pain including pelvic inflammatory disease, tubo-ovarian abscess, Ropb-Woly-Axxofo, and ovarian torsion. Also considered causes of abdominal pain that are not gender-specific (e.g., appendicitis, volvulus, small bowel obstruction, mesenteric adenitis, acute cholecystitis/choledocholithiasis and other biliary pathology, etc.). Patient well-appearing with normal vital signs. No peritoneal signs and abdomen benign on multiple repeat examinations. Pt well hydrated. Laboratory testing and imaging here reviewed and normal. The ultrasound of pelvis shows heterogeneous structure within the cervical canal that could represent blood and blood clots. There is no evidence of ectopic , tubo-ovarian abscess or ovarian torsion. These findings were described to patient and she was advised to follow-up with [facility] specialist in the next 48 hours. Patient was given copies of all imaging and blood work done in the emergency department today. Patient given strict return precautions for worsening pain, inability to eat/drink, f benita (temperature over 100.4F), or other concerns. Prior to discharge all questions answered. She agrees with treatment plan and understands strict return precautions. Follow-up for repeat abdominal exam within 12 hours. DISPOSITION PLAN: We discussed follow up with the patient's primary care doctor within 24 to 48 hours. Patient counseled regarding my diagnostic impression and care plan. Prior to discharge all questions answered. Pt agrees with treatment plan and understands strict return precautions. Precautionary instructions provided including instructions to return to the ER if not improving or for any worsening or changing symptoms or concerns. SPECIALIST FOLLOW UP RECOMMENDED: obgyn Patient has been advised to follow up with primary care in 1-2 days. Disclaimer: Inadvertent spelling and grammatical errors are likely due to EHR/dictation software use and do not reflect on the overall quality of patient care. Also, please note that the electronic time recorded on this note does not necessarily reflect the actual time of the patient encounter. Departure Diagnosis: Primary Impression: Abdominal pain Abdominal location: left lower quadrant Qualified Codes: R10.32 - Left lower quadrant pain Condition: Stable Patient Instructions: Abdominal Pain Referrals: JEREMY KLEIN MD,JAY GARCIA MD, M.D., MARIE H MD BROOKS,ALEXI WILLIAM,ÁNGEL CHARLES,EVELIA ARANDA,ARMAAN ROSEN,MARTHA AGUILAR MD, M.D., SEDI HOUMAN-TABIBZADEH, [facility] Additional Instructions: Paciente aconseja volver a Departamento de urgencias inmediatamente para sntomas nuevos o que empeoran . Paciente aconseja posteriores con el PCP en 1-2 lópez . Paciente verbaliza la comprehensin y est de acuerdo con el tratamiento y el curso de accin. Si el paciente no tiene ninguna de atencin primaria pueden seguir con [facility] [address] [place] [address] o [facility] + [address] [address] JERRI GASTON PA-C Oct 07, 2018 21:59
[2018-10-08] MEDS ORDERED: IBUP-1542 PO (00:04)
[2018-10-08 00:19] VITALS: BP 102/54; PULSE 77; RESP 18
== END 2018-10-08 00:20 | disposition home or self-care (01) ==
LOC: FTE 20:12
DX: R10.32 Left lower quadrant pain (principal); R10.2 Pelvic and perineal pain
CPT/HCPCS: 36415; 74176; 76830; 76856; 80053; 81001; 81025; 83690; 85025; 96361; 96374; 96375; J2270; J2405; J7040; Z7502